=== PATIENT | male | born 1965 | race Two or more races ===

== ENCOUNTER 2017-11-14 07:48 | Emergency (ER) | payer SELFPAY ==
[~2017-11-14] VITALS: Ht 167.6 cm; Wt 49.9 kg
[~2017-11-14 07:48] MED LIST: HYDR-2758 PO; METH5TAB2 PO; ZALE10CA PO
[2017-11-14 08:16] LABS: BASO % 0 % (0-3); EOS % 0 % (0-3); HEMATOCRIT 37.5 % (39.0-53.0); HEMOGLOBIN 12.5 g/dL (13.0-17.5); LYMPH # 1.3 x10^3/uL (1.0-4.8); LYMPH % 20 % (24-48); MEAN CORPUSCULAR HEMOGLOBIN 29 pg (25-35); MEAN CORPUSCULAR HGB CONC 33 g/dL (31-37); MEAN CORPUSCULAR VOLUME 88 fL (79-100); MONO # 0.5 x10^3/uL (0.0-1.1); MONO % 8 % (0-9); NEUT # 4.8 x10^3uL (1.8-7.7); NEUT % 72 % (31-73); PLATELET COUNT 304 x10^3/uL (140-400); RED BLOOD COUNT 4.28 x10^6/uL (4.30-5.70); RED CELL DISTRIBUTION WIDTH 13.8 % (11.5-14.5); WHITE BLOOD COUNT 6.6 x10^3/uL (4.0-11.0)
[2017-11-14] MEDS: METOCLOPRAMIDE HCL 10 MG/2 ML VIAL. IV ONE ×2 (08:18→09:56)
[2017-11-14] MEDS: diphenhydrAMINE 50 MG/ML VIAL IVP ONE ×2 (08:18→09:56)
[2017-11-14] MEDS: IV NORMAL SALINE 1000ML BAG 1,000 ML IV ONE (08:21)
[2017-11-14 08:24] LABS: CALCIUM 8.4 mg/dL (8.5-10.1); CREATININE 0.5 mg/dL (0.7-1.3); POTASSIUM 3.5 mmol/L (3.5-5.1)
[2017-11-14 08:26] LABS: PROTHROMBIN TIME PATIENT 14.5 SEC (11.7-14.0)
[2017-11-14 08:30] LABS: ALBUMIN 3.8 g/dL (3.4-5.0); ALBUMIN/GLOBULIN RATIO 1.1 (1.0-1.7); TOTAL BILIRUBIN 0.3 mg/dL (0.2-1.0); TOTAL PROTEIN 7.4 g/dL (6.4-8.2)
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
--- NOTE | 2017-11-14 09:07 | RAD ---
CT of the head without contrast, 11/14/2017: HISTORY: Headache, vomiting, light sensitivity The ventricles are within normal limits in size. There is no shift of the midline structures. There is no evidence of acute intracranial hemorrhage or mass effect. IMPRESSION: No acute intracranial abnormality is detected. Electronically signed by: Mayank John MD (11/14/2017 9:04 AM) [facility]
[2017-11-14] MEDS: LIDOCAINE 1% PF 30 ML VIAL. INJ ONE (09:15)
[2017-11-14 09:23] LABS: BILIRUBIN,URINE NEGATIVE (NEG); CLARITY,URINE CLEAR; COLOR,URINE YELLOW; NITRITE,URINE NEGATIVE (NEG); PROTEIN,URINE NEGATIVE (NEG-TRACE)
[2017-11-14 09:30] LABS: BACTERIA,URINE FEW /HPF (0-FEW); SQUAMOUS EPITHELIAL CELL,UR FEW /LPF
[2017-11-14 09:31] LABS: RBC,URINE 0 /HPF (0-2)
[2017-11-14] MEDS: DEXAMETHASONE SOD PHOS 20 MG/5 ML VIAL. IV ONE (09:57)
[2017-11-14] MEDS: KETOROLAC 15 MG/ML VIAL. IV ONE (09:57)
[2017-11-14 10:02] LABS: CSF PROTEIN 48.8 mg/dL (15.0-45.0)
[2017-11-14] MEDS: fentaNYL PF VIAL 100 MCG/2 ML VIAL IV PRN (10:36)
[2017-11-14 10:38] VITALS: BP 134/64
[2017-11-14 11:02] LABS: CSF CLARITY CLEAR; CSF COLOR COLORLESS; CSF RBC COUNT 1; CSF WBC COUNT 0
== END 2017-11-14 11:52 | disposition home or self-care (01) ==
LOC: ER 07:48
DX: G44.59 Other complicated headache syndrome (principal); F32.9 Major depressive disorder, single episode, unspecified; R11.2 Nausea with vomiting, unspecified
CPT/HCPCS: 36415; 62270; 70450; 80053; 81001; 82945; 84157; 85025; 85610; 87071; 87075; 87086; 87186; 89051; 96361; 96374; 96375; 96376; 99285; J1100; J1200; J1885; J2765; J3010; J7030; 96360

== ENCOUNTER 2017-11-16 05:06 | Emergency (ER) | payer SELFPAY ==
[~2017-11-16] VITALS: Ht 167.6 cm; Wt 49.9 kg
[2017-11-16 05:15] VITALS: BP 134/77
[2017-11-16] MEDS ORDERED: IV NORMAL SALINE 1000ML BAG 1,000 ML IV ONE (06:00)
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
[2017-11-16 06:12] LABS: CALCIUM 8.5 mg/dL (8.5-10.1); CREATININE 0.4 mg/dL (0.7-1.3); GFR 227.7; POTASSIUM 3.1 mmol/L (3.5-5.1)
[2017-11-16 06:13] LABS: BILIRUBIN,URINE NEGATIVE (NEG); CLARITY,URINE CLEAR; COLOR,URINE YELLOW; NITRITE,URINE NEGATIVE (NEG); PROTEIN,URINE NEGATIVE (NEG-TRACE)
[2017-11-16 06:15] LABS: BASO % 0 % (0-3); EOS % 0 % (0-3); HEMATOCRIT 36.1 % (39.0-53.0); HEMOGLOBIN 12.2 g/dL (13.0-17.5); LYMPH # 1.5 x10^3/uL (1.0-4.8); LYMPH % 28 % (24-48); MEAN CORPUSCULAR HEMOGLOBIN 29 pg (25-35); MEAN CORPUSCULAR HGB CONC 34 g/dL (31-37); MEAN CORPUSCULAR VOLUME 86 fL (79-100); MONO # 0.6 x10^3/uL (0.0-1.1); MONO % 11 % (0-9); NEUT # 3.4 x10^3uL (1.8-7.7); NEUT % 61 % (31-73); PLATELET COUNT 310 x10^3/uL (140-400); RED BLOOD COUNT 4.18 x10^6/uL (4.30-5.70); WHITE BLOOD COUNT 5.5 x10^3/uL (4.0-11.0)
[2017-11-16] MEDS ORDERED: diphenhydrAMINE 50 MG/ML VIAL IVP ONE (06:15)
[2017-11-16] MEDS ORDERED: KETOROLAC 15 MG/ML VIAL. IV ONE (06:15)
[2017-11-16] MEDS ORDERED: METOCLOPRAMIDE HCL 10 MG/2 ML VIAL. IV ONE (06:15)
[2017-11-16] MEDS ORDERED: DEXAMETHASONE SOD PHOS 20 MG/5 ML VIAL. IV ONE (06:15)
[2017-11-16 06:18] LABS: ALBUMIN 3.6 g/dL (3.4-5.0); MAGNESIUM 2.1 mg/dL (1.8-2.4); TOTAL BILIRUBIN 0.4 mg/dL (0.2-1.0); TOTAL PROTEIN 7.2 g/dL (6.4-8.2)
[2017-11-16 06:43] LABS: BACTERIA,URINE 0 /HPF (0-FEW); RBC,URINE OCC /HPF (0-2); SQUAMOUS EPITHELIAL CELL,UR OCC /LPF
[2017-11-16 06:44] LABS: HYALINE CASTS, URINE OCCASIONAL /HPF
[2017-11-16] MEDS ORDERED: CYCL10TA2 PO (06:54)
== END 2017-11-16 07:16 | disposition home or self-care (01) ==
LOC: ER 05:06
DX: R51 Headache (principal); R11.10 Vomiting, unspecified; G82.20 Paraplegia, unspecified; R31.9 Hematuria, unspecified; R30.0 Dysuria; M54.2 Cervicalgia; F32.9 Major depressive disorder, single episode, unspecified
CPT/HCPCS: 36415; 80053; 81001; 83605; 83735; 85025; 96361; 96374; 96375; 99284; J1100; J1200; J1885; J2765; J7030

== ENCOUNTER 2019-07-27 16:12 | Emergency (ER) | payer SELFPAY ==
[~2019-07-27] VITALS: Ht 167.6 cm; Wt 55.0 kg
[~2019-07-27 16:12] MED LIST changes: +CYCL10TA2 PO; -HYDR-2758 PO; +HYDR-2761 PO
[2019-07-27] MEDS ORDERED: silver sulfADIAZINE 1% CREAM 25GM TUBE. TP ONE (16:30)
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
[2019-07-27 17:18] VITALS: BP 122/71
[2019-07-27] MEDS ORDERED: SILV20CR14 TP (17:30)
== END 2019-07-27 17:39 | disposition home or self-care (01) ==
LOC: ER 16:12
DX: T25.211A Burn of second degree of right ankle, initial encounter (principal); X11.8XXA Contact with other hot tap-water, initial encounter; Y93.E1 Activity, personal bathing and showering; Y92.091 Bathroom in other non-institutional residence as the place of occurrence of the external cause; Y99.8 Other external cause status
CPT/HCPCS: 99283

== ENCOUNTER 2019-08-12 20:50 | Emergency (ER) | payer SELFPAY ==
[~2019-08-12] VITALS: Ht 167.6 cm; Wt 70.9 kg
[~2019-08-12 20:50] MED LIST changes: +SILV20CR14 TP
[2019-08-12] MEDS ORDERED: diphenhydrAMINE HCL 25 MG CAPSULE PO ONE ×2 (21:06→21:30)
[2019-08-12] MEDS ORDERED: methylPREDNISolone SOD SUCC PF 125 MG/2 ML VIAL. ONE (21:06)
[2019-08-12] MEDS ORDERED: FAMOTIDINE 20 MG TABLET. PO ONE (21:30)
[2019-08-12] MEDS ORDERED: methylPREDNISolone SOD SUCC PF 125 MG/2 ML VIAL. IM ONE (21:30)
[2019-08-12] MEDS ORDERED: METH4TAB2 PO (23:39)
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
[2019-08-13 00:07] VITALS: BP 129/74
== END 2019-08-13 00:10 | disposition home or self-care (01) ==
LOC: ER 20:50
DX: L50.9 Urticaria, unspecified (principal); R60.0 Localized edema; F32.9 Major depressive disorder, single episode, unspecified; Z98.890 Other specified postprocedural states; Z88.8 Allergy status to other drugs, medicaments and biological substances
CPT/HCPCS: 96372; 99284; J2930; Q0163